=== PATIENT | male | born 2005 | race Caucasian/White ===

== ENCOUNTER → 2025-05-11 | Emergency (ER) | payer OTHER ==
[~2025-05-11] VITALS: Ht 190.5 cm; Wt 102.3 kg
[2025-05-11 00:45] VITALS: TEMP 98.2
[2025-05-11] MEDS: LIDOCAINE 1% 10 ML VIAL ID ONE (00:58)
[2025-05-11 01:49] VITALS: BP 119/86; PULSE 101; RESP 14; O2SAT 97
== END | disposition still patient (30) ==
LOC: EMS 00:40
DX: S01.511A Laceration without foreign body of lip, initial encounter (principal); W01.0XXA Fall on same level from slipping, tripping and stumbling without subsequent striking against object, initial encounter; Y93.89 Activity, other specified; Y92.89 Other specified places as the place of occurrence of the external cause; Y99.8 Other external cause status
CPT/HCPCS: 99282; 12011; J3490